=== PATIENT | male | born 1970 | race Caucasian/White ===

== ENCOUNTER 2018-06-25 11:32 | Observation (INO) ==
[2018-06-25] MEDS ORDERED: ASPIRIN 81 MG TAB.CHEW PO ONE (11:39)
[2018-06-25] MEDS ORDERED: ONDANSETRON HCL/PF 2 MG/ML VIAL IV ONE (11:52)
[2018-06-25] MEDS ORDERED: ONDANSETRON HCL/PF 2 MG/ML VIAL ONE (11:53)
[2018-06-25] MEDS: NITROGLYCERIN 0.4 MG/TAB BTL SL PRN ×2 (11:56→18:52)
[2018-06-25 12:00] LABS: Hematocrit 44.2 % (42.0-52.0); Hemoglobin 15.1 gm/dL (13.5-18.0); Mean Cell Volume 86.8 fl (78-100); Mean Corpuscular Hemoglobin 29.7 pg (27-31); Mean Corpuscular Hgb Conc 34.2 g/dl (32-36); Mean Platelet Volume 10.2 fl (8-11.3); Neutrophil # 2.8 K/mm3 (1.3-6.0); Neutrophil % 56.5 % (42-75.0); Platelet Count 213 K/mm3 (150-450); Red Blood Count 5.09 M/mm3 (4.7-6.0); Red Cell Distribution Width 11.9 % (11.5-14.0)
[2018-06-25] MEDS ORDERED: NITROGLYCERIN 1 INCH PACKET TD ONE (12:07)
[2018-06-25 12:14] LABS: ALT 26 U/L (19-67); AST 21 U/L (0-48); Albumin * 3.9 gm/dl (3.4-5.0); Alkaline Phosphatase * 94 U/L (50-170); BUN/Creatinine Ratio 16.7 (9.0-21.6); Bilirubin, Total 0.6 mg/dL (0.0-1.1); Blood Urea Nitrogen 17 mg/dL (6-23); Calcium * 9.2 mg/dL (7.9-10.9); Carbon Dioxide 25.6 mmol/L (24-32.6); Chloride 104 mmol/L (97-106); Glucose * 112 mg/dL (70-110); Potassium 3.6 mmol/L (3.4-4.6); Sodium 141 mmol/L (132-142); Total Protein 7.3 gm/dL (6.2-8.2)
[2018-06-25 12:16] LABS: Troponin I Less than 0.017 ng/mL (0.00-0.10)
--- NOTE | 2018-06-25 13:31 | ERNOTE ---
Chest Pain/Cardiac HPI Date of Service: 06/25/18 Chief Complaint: Chest Pain Time Seen by Provider: 06/25/18 11:44 Source: patient Exam Limitations: no limitations Allergies/Adverse Reactions: Allergies Penicillins Allergy (Verified 06/25/18 11:39) Home Medications: HOME MEDICATIONS Aspirin [Adult Aspirin] 81 mg PO DAILY 06/25/18 [Last Taken Unknown] Narrative: Patient presents to the ED for chest pain. He relates that he has had 2 episodes of exertional CP today. He was shoveling snow this am at work and developed chest pain that lasted approx 10 minutes then went away. This castro recurred around 9 again when he was walking up the stairs. Minimal residual pain in the chest here resolved with ASA and NTG. Pain left chest to center of chest with some SOB. He actually has been having some off and on pains for over a month but nothing exertional like this. Was set up to see PCP for possible stress test but that appt isnt for 2 more days. Paternal family Hx of early CAD. Timing: gone now Severity/Quality: moderate Location: central Activities at Onset: other - exertion Modifying Factors - Improves: Present: nitroglycerin Modifying Factors - Worsens: Present: exercise Nitro Today/Relief: 0.4 mg x 1 Aspirin Treatment Today: 325 mg x 1 Associated Symptoms: Present: shortness of breath. Absent: syncope, cough, weak ness Prior Chest Pain/Cardiac Workup: Reports: no prior cardiac workup Prior Treatment: Denies: recently seen Review of Systems - Review of Systems Constitutional: Absent: fever Respiratory: Present: See HPI Cardiology: Present: See HPI Gastrointestinal/Abdominal: Absent: abdominal pain Neurological: Absent: weakness All Other Systems: All systems neg except as marked Medical History (Last Reviewed 06/25/18 @ 13:26 by Terrell Alvarado MD) No pertinent past medical history Surgical History: Surgical History (Last Reviewed 06/25/18 @ 13:26 by Terrell Alvarado MD) Hx of appendectomy Hx of knee surgery Hx of shoulder surgery Social History: Preferred Language Bulgarian Do you have any jew or No cultural preference? Smoking Status Never smoker Alcohol Use sober Drug Use none No Social History Section defined Physical Exam - Physical Exam General Appearance: Present: alert, no apparent distress Head Exam: Present: normal inspection, no evidence of injury Eye Exam: Normal inspection: bilateral, PERRL: bilateral Ears, Nose, Throat: Present: normal ENT inspection Neck: Present: normal inspection Respiratory: Present: no respiratory distress, normal breath sounds, no accessory muscle use, lungs clear Cardiovascular/Chest: Present: regular rate, rhythm, normal peripheral pulses Gastrointestinal/Abdominal: Present: normal bowel sounds, nontender, nondistended, soft Back Exam: Present: normal range of motion Extremity Exam: Present: normal inspection, non-tender, no edema Neurological Exam: Present: alert, no motor/sensory deficits Skin Exam: Present: normal color, warm/dry Progress - Results and Orders Patient's Lab Results:: I have reviewed the patient's lab results. - Vital Signs Patient's Vital Signs:: I have reviewed the patient's vital signs. Vital Signs: Vital Signs 06/25/18 11:33 Temperature 36.5 C Pulse Rate 92 Respiratory Rate 14 Blood Pressure 156/89 H O2 Sat by Pulse Oximetry 100 - EKG EKG #1 EKG read: Interp. by me EKG Comments: NSR rate 83. Non-specific, no STEMI - X-Ray X-Ray #1 X-Ray: chest Interpretation: Interp. by me X-ray Comments: I reviewed official radiology report - Progress/Reassessment Chief Complaint: Chest Pain Progress Note-Subjective: 06/25/18 13:29 Patient pain free after NTG. There is no suggestion of PE or aortic dissection, with d-dimer in normal range, no indication for CT. Given the exertional pain X 2 today and releif with NTG I feel he needs rule out before stress test. Patient and fam prefer hospital rule out. D/W Dr Fox who will admit obs. Departure Clinical Impression: Chest pain - Departure Disposition: Still a patient Condition: Stable
[2018-06-25] MEDS ORDERED: ACETAMINOPHEN 325 MG TABLET PO PRN ×2 (19:38→20:18)
[2018-06-25] MEDS ORDERED: ACETAMINOPHEN 325 MG TABLET ONE (19:47)
--- NOTE | 2018-06-25 23:02 | HP ---
Chief Complaint - Chief Complaint Date of Service: 06/25/18 Time of Service: 18:00 Chief Complaint: Chest Pain History of Present Illness: James is a 48 yo male that has been having reoccurring chest pain off and on for the last few months. Today he was out shoveling when he began having left anterior chest wall pain with radiation to his back. He was short of breath and had increased sweating. He denies cough and no association with food to his pain. He presented to the ER for evaluation and was given nitro. He reports the nitro helped his chest pain. Initial work up in the ER was negative for acute IL with negative troponins, no EKG change, and no acute findings on imaging. 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 Smoking Status Never smoker Have you smoked in the past 12 No months Alcohol Use sober Drug Use none No Social History Section defined Review Of Systems (GEN) - Review of Systems Generalized/Overall Review: Absent: Weakness, Chills, Fever EENTM: Present: No Symptoms Reported Respiratory: Present: Shortness of Breath. Absent: Cough, Wheezing Cardiac: Present: Chest Pain. Absent: Edema, Palpitations, Syncope Abdominal: Absent: Nausea, Vomiting, Abdominal Pain, Constipation, Diarrhea Genitourinary: Present: No Symptoms Reported Musculoskeletal: Present: No Symptoms Reported Neurological: Present: No Symptoms Reported Skin: Present: No Symptoms Reported Allergies/Adverse Reactions: Allergies Allergy/AdvReac Type Severity Reaction Status Date / Time Penicillins Allergy Verified 06/27/18 14:23 Home Medications: HOME MEDICATIONS Aspirin [Adult Aspirin] 81 mg PO DAILY 06/25/18 [Last Taken 06/25/18] metoprolol tartrate 25 mg tablet 25 mg PO BID #60 tab 06/27/18 [Last Taken Unknown] nitroglycerin 0.4 mg sublingual tablet 0.4 mg SL Q5-15M PRN #25 tab 06/27/18 [Last Taken Unknown] Exam - Exam Vital Signs: Vital Signs - Last Taken Temp 37.0 C 06/25/18 22:05 Pulse 64 06/25/18 22:05 Resp 16 06/25/18 22:05 BP 113/56 06/25/18 22:05 Pulse Ox 97 06/25/18 22:05 Constitutional: Present: Alert, Oriented x3, Cooperative ENT Exam: Present: hearing grossly normal Eye Exam: bilateral eye: normal inspection Respiratory: Present: lungs clear, normal breath sounds Cardiovascular/Chest: Present: regular rate, rhythm, no murmur Peripheral Pulses: radial (R): 2+, radial (L): 2+ Abdomen: Present: Normal bowel sounds, soft, nontender, nondistended Extremity: Present: normal inspection, normal capillary refill Skin Exam: Present: normal color, warm/dry, no cyanosis Lymphatic: Present: no adenopathy Neurologic: Present: no motor/sensory deficits, alert, normal mood/affect, oriented x 3 Appearance: Present: appropriate appearance, appropriate insight Eye contact: Present: cooperative, good eye contact, normal speech Thoughts: Present: normal thought pattern, no apparent hallucination Diagnostic Studies: Abnormal Lab Results 06/25/18 Range/Units 11:50 Anion Gap 15.0 H (6.8-13.8) mmol/L Random Glucose 112 H (70-110) mg/dL Laboratory Results WBC 5.0 K/mm3 (4.0-10.5) 06/25/18 11:50 RBC 5.09 M/mm3 (4.7-6.0) 06/25/18 11:50 Hgb 15.1 gm/dL (13.5-18.0) 06/25/18 11:50 Hct 44.2 % (42.0-52.0) 06/25/18 11:50 MCV 86.8 fl (78-100) 06/25/18 11:50 MCH 29.7 pg (27-31) 06/25/18 11:50 MCHC 34.2 g/dl (32-36) 06/25/18 11:50 RDW 11.9 % (11.5-14.0) 06/25/18 11:50 Plt Count 213 K/mm3 (150-450) 06/25/18 11:50 MPV 10.2 fl (8-11.3) 06/25/18 11:50 Immature Gran % (Auto) 0.20 % (0.001-0.429) 06/25/18 11:50 Immature Gran # (Auto) 0.01 K/mm3 (0.000-0.0310) 06/25/18 11:50 Neutrophils % 56.5 % (42-75.0) 06/25/18 11:50 Lymphocytes % 33.5 % (20-51) 06/25/18 11:50 Monocytes % 7.6 % (0.0-9) 06/25/18 11:50 Eosinophils % 1.2 % (0.0-3.0) 06/25/18 11:50 Basophils % 1.0 % (0.0-1.0) 06/25/18 11:50 Nucleated RBC % 0.0 k/mm3 (0-1) 06/25/18 11:50 Neutrophils # 2.8 K/mm3 (1.3-6.0) 06/25/18 11:50 Lymphocytes # 1.67 k/mm3 (1.5-3.5) 06/25/18 11:50 Monocytes # 0.4 k/mm3 (0.0-1.0) 06/25/18 11:50 Eosinophils # 0.1 k/mm3 (0.0-0.7) 06/25/18 11:50 Absolute Basophils 0.1 k/mm3 (0.0-0.1) 06/25/18 11:50 D-Dimer 0.26 ug/mL (0.19-0.49) 06/25/18 11:50 Sodium 141 mmol/L (132-142) 06/25/18 11:50 Plasma Sodium 141 mmol/L (130-142) 06/25/18 11:50 Potassium 3.6 mmol/L (3.4-4.6) 06/25/18 11:50 Chloride 104 mmol/L (97-106) 06/25/18 11:50 Carbon Dioxide 25.6 mmol/L (24-32.6) 06/25/18 11:50 Anion Gap 15.0 mmol/L (6.8-13.8) H 06/25/18 11:50 BUN 17 mg/dL (6-23) 06/25/18 11:50 Creatinine 1.02 mg/dL (0.4-1.4) 06/25/18 11:50 Est GFR (Non-Af Amer) 83 mL/min (60-130) 06/25/18 11:50 BUN/Creatinine Ratio 16.7 (9.0-21.6) 06/25/18 11:50 Random Glucose 112 mg/dL (70-110) H 06/25/18 11:50 Calcium 9.2 mg/dL (7.9-10.9) 06/25/18 11:50 Calcium Adj for Albumin 9.0 mg/dL (8.4-10.2) 06/25/18 11:50 Total Bilirubin 0.6 mg/dL (0.0-1.1) 06/25/18 11:50 AST 21 U/L (0-48) 06/25/18 11:50 ALT 26 U/L (19-67) 06/25/18 11:50 Alkaline Phosphatase 94 U/L (50-170) 06/25/18 11:50 Troponin I Less than 0.017 ng/mL (0.00-0.10) 06/25/18 18:10 Total Protein 7.3 gm/dL (6.2-8.2) 06/25/18 11:50 Albumin 3.9 gm/dl (3.4-5.0) 06/25/18 11:50 Assessment/Plan - Narrative Narrative: James is a 48 yo male with chest pain. Initial work up in the ER is negative for acute IL. His pain has been off and on for the last few month but he does report responsiveness to nitro in the ER. He will be admitted to observation with serial troponins, monitoring on telemetry. Will consider outpatient stress testing. Expect 1 midnight hospitalization. - Assessment/Plan (1) Chest pain Problem: Acute Qualifiers: Chest pain type: unspecified Qualified Code(s): R07.9 - Chest pain, unspecified
--- NOTE | 2018-06-26 10:48 | DS ---
(1) Chest pain Problem: Acute Qualifiers: Chest pain type: unspecified Qualified Code(s): R07.9 - Chest pain, unspecified Description of Stay: James is a 48 yo male that was admitted for chest pain that occurred while shoveling snow. His initial work up was negative for acute IA. He was admitted to observation with telemetry and repeat troponin. There were no acute change on telemetry and troponin was negative x 3. He continues to report left anterior chest wall pain that comes and goes and I suspect it is musculoskeletal but will evaluate this further with a stress test as an outpatient. Procedures Performed: none Results and Findings: Lab Pending Results 06/25/18 11:50: WBC 5.0, RBC 5.09, Hgb 15.1, Hct 44.2, MCV 86.8, MCH 29.7, MCHC 34.2, RDW 11.9, Plt Count 213, MPV 10.2, Immature Gran % (Auto) 0.20, Immature Gran # (Auto) 0.01, Neutrophils % 56.5, Lymphocytes % 33.5, Monocytes % 7.6, Eosinophils % 1.2, Basophils % 1.0, Nucleated RBC % 0.0, Neutrophils # 2.8, Lymphocytes # 1.67, Monocytes # 0.4, Eosinophils # 0.1, Absolute Basophils 0.1 06/25/18 11:50: Sodium 141, Plasma Sodium 141, Potassium 3.6, Chloride 104, Carbon Dioxide 25.6, Anion Gap 15.0 H, BUN 17, Creatinine 1.02, Est GFR (Non-Af Amer) 83, BUN/Creatinine Ratio 16.7, Random Glucose 112 H, Calcium 9.2, Calcium Adj for Albumin 9.0, Total Bilirubin 0.6, AST 21, ALT 26, Alkaline Phosphatase 94, Troponin I Less than 0.017, Total Protein 7.3, Albumin 3.9 06/25/18 11:50: D-Dimer 0.26 06/25/18 18:10: Troponin I Less than 0.017 06/26/18 03:28: Troponin I Less than 0.017 Discharge Location: Home Disposition: Home self-care Condition: Good Discharge Activity: Activity as tolerated Discharge Diet: General/regular food Referrals: Zurdo Blanco DO [Staff Physician] - One Week (Patient has appointment scheduled for tomorrow, reschedule this follow after the stress test) Problem Oriented Discharge Instructions to Patient/Family: Chest Pain Observation Complete Home Medications List: Complete Home Medication List: Aspirin [Adult Aspirin] 81 mg PO DAILY 06/25/18 Amb Orders for Discharge: NUC Treadmill Stress Test Time Frame: 1 Week, Location: Radiology
[2018-06-26 11:41] VITALS: BP 140/84
== END 2018-06-26 11:55 | disposition home or self-care (01) ==
LOC: ER 11:32 → MS 11:32
PROVIDERS: ADMIT Family Medicine; ATTEND Family Medicine
DX: R07.9 Chest pain, unspecified
CPT/HCPCS: 36415; 71020; 71046; 80053; 84484; 85025; 85379; 93005; 96374; 99285; G0378; J2405

== ENCOUNTER 2019-11-09 03:51 | Inpatient (IN) ==
[2019-11-09 04:26] LABS: Hematocrit 42.6 % (42.0-52.0); Hemoglobin 13.7 gm/dL (13.5-18.0); Mean Cell Volume 89.5 fl (78-100); Mean Corpuscular Hemoglobin 28.8 pg (27-31); Mean Corpuscular Hgb Conc 32.2 g/dl (32-36); Mean Platelet Volume 9.4 fl (8-11.3); Neutrophil # 9.6 K/mm3 (1.3-6.0); Neutrophil % 77.1 % (42-75.0); Platelet Count 329 K/mm3 (150-450); Red Blood Count 4.76 M/mm3 (4.7-6.0); Red Cell Distribution Width 12.7 % (11.5-14.0); White Blood Count 12.4 K/mm3 (4.0-10.5)
[2019-11-09 04:38] LABS: Anion Gap 13.6 mmol/L (6.8-13.8); BUN/Creatinine Ratio 12.8 (9.0-21.6); Bilirubin, Total 0.7 mg/dL (0.0-1.1); Calcium * 9.5 mg/dL (7.9-10.9); Carbon Dioxide 26.1 mmol/L (24-32.6); Potassium 3.7 mmol/L (3.4-4.6); Total Protein 7.8 gm/dL (6.2-8.2)
[2019-11-09] MEDS ORDERED: MORPHINE SULFATE 2 MG/ML DISP.SYRIN IV ONE ×3 (04:45→08:06)
--- NOTE | 2019-11-09 04:52 | ERNOTE ---
Abdominal HPI - Narrative Date of Service: 11/09/19 - General Chief Complaint: Abdominal Pain Time Seen by Provider: 11/09/19 04:10 Source: patient, family Exam Limitations: no limitations - Immun/Allergies/Home Medications Immunizatons: IMMUNIZATION HX Immunizations Up to Date Yes History of Influenza Vaccine No Hx Pneumococcal Vaccination No Allergies/Adverse Reactions: Allergies Penicillins Allergy (Verified 11/09/19 04:08) Home Medications: HOME MEDICATIONS nitroglycerin 0.4 mg sublingual tablet 0.4 mg SL Q5-15M PRN #25 tab 06/27/18 [Last Taken Unknown] metoprolol tartrate 50 mg tablet 50 mg PO DAILY #180 tab 06/16/19 [Last Taken Unknown] Albuterol Sulfate [Proair HFA] 2 puff INHALATION Q6H #1 inhaler 11/03/19 [Last Taken Unknown] Levofloxacin [Levaquin] 500 mg PO DAILY #7 tab 11/03/19 [Last Taken Unknown] Famotidine [Pepcid] 20 mg PO DAILY 11/09/19 [Last Taken Unknown] - History of Present Illness Narrative: Patient was seen in the ER about a week ago and diagnosed with community- acquired pneumonia, just finishing a course of Levaquin. Over the past couple of days, he has developed pain in the epigastric region. This radiates through to his back. He is not aware of a fever, but he has had some diaphoresis. He has also had some constipation. No nausea or vomiting. Review of Systems - Review of Systems Constitutional: Present: recent illness, diaphoresis, malaise EYE: Present: no symptoms reported ENT: Present: no symptoms reported Respiratory: Present: no symptoms reported Cardiology: Present: no symptoms reported Gastrointestinal/Abdominal: Present: abdominal pain Genitourinary: Present: no symptoms reported Musculoskeletal: Present: no symptoms reported Skin: Present: no symptoms reported Neurological: Present: no symptoms reported Endocrine: Present: no symptoms reported Hematologic/Lymphatic: Present: no symptoms reported Psych: Present: no symptoms reported All Other Systems: All systems neg except as marked Medical History (Last Reviewed 11/09/19 @ 04:51 by Carolyn Ribera MD) Chest pain (Resolved) Coronary artery spasm (Suspected) No problems with chest pain from the suspected issue since starting metoprolol. He has some mild fatigue but is adapted to it. 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 No pertinent past medical history History of left heart catheterization dr royal at [facility], was clean test with no cad/blockage, no stents Surgical History: Surgical History (Last Reviewed 11/09/19 @ 04:51 by Carolyn Ribera MD) Hx of appendectomy Hx of knee surgery Hx of shoulder surgery Family History: Family History (Last Reviewed 11/09/19 @ 04:51 by Carolyn Ribera MD) Mother Hypertension Father CHF (congestive heart failure) Myocardial infarction Brother Hypertension Social History: (Last Reviewed 11/09/19 @ 04:51 by Carolyn Ribera MD) Social History: Marital status: number of children: 2 current occupational status: employed current occupation: [employer] Highest education level completed: Bachelor's degree Service: No Tobacco: Smoking Status: Never smoker Alcohol: alcohol intake: never Substance Use: substance use type: does not use Dietary Habits: caffeine: Yes Physical Exam - Physical Exam General Appearance: Present: wd/wn, mild distress Head Exam: Present: normal inspection, no evidence of injury Eye Exam: Normal inspection: bilateral, PERRL: bilateral Ears, Nose, Throat: Present: normal ENT inspection Neck: Present: normal inspection, nontender, supple, full range of motion Respiratory: Present: no respiratory distress, normal breath sounds, no accessory muscle use, chest nontender, lungs clear Cardiovascular/Chest: Present: regular rate, rhythm, no murmur, normal peripher al pulses Gastrointestinal/Abdominal: Present: tenderness - epigastric Back Exam: Present: normal inspection, normal range of motion, no CVA tendernes s, no vertebral tenderness Extremity Exam: Present: normal inspection, normal range of motion, no edema Neurological Exam: Present: alert, normal mood/affect, no motor/sensory deficits Skin Exam: Present: normal color, warm/dry Lymphatic Exam: Present: no adenopathy Progress - Results and Orders Patient's Lab Results:: I have reviewed the patient's lab results. - Vital Signs Patient's Vital Signs:: I have reviewed the patient's vital signs. Vital Signs: Vital Signs 11/09/19 04:03 11/09/19 04:40 Temperature 36.5 C Pulse Rate 94 88 Respiratory Rate 16 18 Blood Pressure 130/88 132/84 O2 Sat by Pulse Oximetry 96 96 - EKG EKG #1 EKG: nonspecific ST T wave changes EKG read: Reviewed by me EKG Comments: No significant change from prior EKG 11/03/19. - CT/Ultrasound CT/Ultrasound Narrative: CT angiogram of the chest shows no evidence of pulmonary embolus. There is an abnormal appearance of the esophagus, highly worrisome for esophageal malignancy with pathologic mediastinal lymphadenopathy. Recommend correlation with endoscopy. No evidence of perforation. Small bilateral pleural effusions with bibasilar groundglass and linear opacities, which may represent atelectasis and/or pneumonia to include atypical viral pneumonia. CT of the abdomen and pelvis without acute abnormality. There is a small fat-containing umbilical hernia. Esophageal findings as above. - Progress/Reassessment Chief Complaint: Abdominal Pain Plan - Plan Plan: He is having pain with any attempt to eat or drink. Will request admission for IV fluids, pain control, further evaluation of esophagus. I have a call in to his PCP, Dr. Blanco. Departure Clinical Impression: Abnormal CT scan, esophagus, Epigastric pain - Departure Disposition: Short Term Hospital Inpatient Condition: Stable Referrals: Zurdo Blanco DO [Primary Care Provider] -
[2019-11-09] MEDS ORDERED: DIATRIZOATE MEGLUMINE, SODIUM 30 ML BTL PO ONE (04:56)
[2019-11-09] MEDS ORDERED: ONDANSETRON HCL/PF 2 MG/ML VIAL IV ONE (04:59)
[2019-11-09] MEDS ORDERED: MORPHINE SULFATE 4 MG/ML SYRG IV ONE (08:30)
[2019-11-09] MEDS ORDERED: ONDANSETRON HCL/PF 2 MG/ML VIAL IV PRN (08:37)
[2019-11-09] MEDS ORDERED: MORPHINE SULFATE 4 MG/ML SYRG IV PRN (08:37)
[2019-11-09] MEDS ORDERED: METOPROLOL TARTRATE 1 MG/ML AMPUL IV PRN (08:54)
--- NOTE | 2019-11-09 09:19 | CONS ---
[facility] - General Date of Service: 11/09/19 Source: patient, family, RN/MD, RN notes reviewed, old records Exam Limitations: no limitations - History of Present Illness Timing/Duration: getting worse Modifying Factors - (Worsens): Reports: eating Modifying Factors - (Improves): Reports: rest Associated Symptoms: chest pain, loss of appetite Allergies/Adverse Reactions: Allergies Penicillins Allergy (Verified 11/09/19 04:08) Home Medications: Home Medications Medication Instructions Recorded Last Taken nitroglycerin 0.4 mg sublingual 0.4 mg SL Q5-15M PRN #25 tab 06/27/18 Unknown tablet metoprolol tartrate 50 mg tablet 50 mg PO DAILY #180 tab 06/16/19 Unknown Albuterol Sulfate [Proair HFA] 2 puff INHALATION Q6H #1 inhaler 11/03/19 Unknown Levofloxacin [Levaquin] 500 mg PO DAILY #7 tab 11/03/19 Unknown Famotidine [Pepcid] 20 mg PO DAILY 11/09/19 Unknown Procedures Application of splint (05/23/99) Medications - Medications Current Medications: He just finished a course of Levaquin for community-acquired pneumonia. He had COVID testing on 11/03/2019 that was negative Review of Systems - Review of Systems Narrative: He was in the ER on 11/03/2019 and found to have community-acquired pneumonia which was treated with an outpatient course of Levaquin. COVID-19 testing on 11/03/2019 was negative. He states he has a constant discomfort in the epigastrium (2/3). This gets worse if he eats. He has some bloating. The pain occasionally radiates up into the left chest and into his back. He denies dysphagia or odynophagia but is not eating much because of the discomfort. He does not get heartburn often. He does not report reflux. He has some bloating. He states he is somewhat constipated his stools are harder and he has to push to go. He had his appendix out in [place] in [address]. [address] scan of the chest was done for possible pulmonary embolism due to an elevated d-dimer. It showed some thickening of the distal esophagus and endoscopy was recommended. He has also had chest pain before but this is different. The pain he had before prompting an ER visit and an observation stay. He subsequently saw insurance checker and had coronary angiography in [place] that was negative. He was placed on metoprolol and apparently that pain is somewhat better. Generalized/Overall Review: Present: Weakness, Diaphoresis. Absent: Chills, Fever EENTM: Present: No Symptoms Reported, Other - His states he snores. Absent: Throat Pain Respiratory: Present: Other - He really denies much in the way of a cough or sputum production. No dyspnea on exertion Genitourinary: Present: No Symptoms Reported. Absent: Nocturia, Dysuria Musculoskeletal: Present: No Symptoms Reported Neurological: Present: No Symptoms Reported Skin: Present: No Symptoms Reported Endocrine: Present: No Symptoms Reported Physical Examination - Exam Vital Signs: Vital Signs - Last Taken Temp 36.5 C 11/09/19 04:03 Pulse 82 11/09/19 08:11 Resp 19 11/09/19 08:11 BP 150/85 H 11/09/19 08:11 Pulse Ox 94 11/09/19 08:11 O2 Oxygen Delivery Method Room Air Constitutional: Present: Alert, Oriented x3, Cooperative, Well developed, Well n ourished, Mild distress ENT Exam: Present: normal ENT inspection, other - Mallampati 4 airway Eye Exam: bilateral eye: normal inspection, other - Conjunctival injection Neck: Present: full range of motion, normal inspection Breasts: Present: Exam deferred Respiratory: Present: normal breath sounds, no respiratory distress Cardiovascular/Chest: Present: regular rate, rhythm, no murmur Abdomen: Present: other - Very tympanitic. No percussion tenderness or direct tenderness. No bowel sounds over 1 minute /Rectal: Present: Exam deferred Extremity: Present: normal range of motion, normal inspection Skin Exam: Present: normal color, warm/dry Neurologic: Present: multiskill operator II-XII nml as tested, normal cerebellar test, no mot or/sensory deficits Appearance: Present: appropriate appearance, appropriate insight, neat, no memory impairment Eye contact: Present: cooperative, good eye contact, normal speech Thoughts: Present: normal thought pattern - Results and Findings: Lab/Microbiology results last 24 hrs: Abnormal/Pending Laboratory Last 24 HRS 11/09/19 11/09/19 11/09/19 04:20 04:20 04:20 WBC 12.4 H Immature Gran % (Auto) 0.80 H Immature Gran # (Auto) 0.10 H Neutrophils % 77.1 H Lymphocytes % 12.3 L Neutrophils # 9.6 H D-Dimer 2.24 H Random Glucose 119 H Albumin 3.[address] scan of the chest abdomen and pelvis is remarkable for distal esophageal thickening. Endoscopy was recommended to rule out malignancy - Assessments/Findings (1) Abnormal CT scan, esophagus Diagnosis(s): Pamphlets on EGD and GERD were reviewed with him and his and given to them for reference. Explained what was involved with EGD with biopsies. The risks and complications were explained. After an interactive discussion his questions were answered to his apparent satisfaction and he has given informed consent for EGD. Rapid COVID testing has just been performed. Endoscopy will be scheduled when that result is known. Problem: Acute
[2019-11-09] MEDS: PANTOPRAZOLE SODIUM 40 MG in NORMAL SALINE 100 ML IV SCH ×2 (09:31→20:52)
[2019-11-09] MEDS: MORPHINE SULFATE 10 MG/ML SYRG IV PRN ×3 (10:15→23:14)
--- NOTE | 2019-11-09 10:41 | ANES ---
Anesthesia Pre Procedure Eval Vitals/Labs: Last Vital Signs Temp 37.3 C 11/09/19 08:36 Pulse 83 11/09/19 09:18 Resp 13 11/09/19 09:18 BP 126/85 11/09/19 09:18 Pulse Ox 95 11/09/19 09:18 HOME MEDICATIONS nitroglycerin 0.4 mg sublingual tablet 0.4 mg SL Q5-15M PRN #25 tab 06/27/18 [Last Taken Unknown] metoprolol tartrate 50 mg tablet 50 mg PO DAILY #180 tab 06/16/19 [Last Taken Unknown] Albuterol Sulfate [Proair HFA] 2 puff INHALATION Q6H #1 inhaler 11/03/19 [Last Taken Unknown] Levofloxacin [Levaquin] 500 mg PO DAILY #7 tab 11/03/19 [Last Taken Unknown] Famotidine [Pepcid] 20 mg PO DAILY 11/09/19 [Last Taken Unknown] Allergies/Adverse Reactions: Allergies Allergy/AdvReac Type Severity Reaction Status Date / Time Penicillins Allergy Verified 11/09/19 04:08 - Planned Procedure Planned Procedure: Epigastric pain Medication List Reviewed:: Yes Allergies Verified: Yes Medical History (Last Reviewed 11/09/19 @ 10:40 by Roland Milner CRNA) Chest pain (Resolved) Coronary artery spasm (Suspected) No problems with chest pain from the suspected issue since starting metoprolol. He has some mild fatigue but is adapted to it. 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 No pertinent past medical history History of left heart catheterization dr royal at [facility], was clean test with no cad/blockage, no stents Surgical History (Last Reviewed 11/09/19 @ 10:40 by Roland Milner CRNA) Hx of appendectomy Hx of knee surgery Hx of shoulder surgery Family History (Last Reviewed 11/09/19 @ 10:40 by Roland Milner CRNA) Mother Hypertension Father CHF (congestive heart failure) Myocardial infarction Brother Hypertension - Family Anesthesia History Family History:: no untoward family reactions to anesthesia, no familial bleeding tendencies, no family history of clotting disorders, no family history of premature - Airway/Neck/Teeth Within Normal Limits:: Yes Teeth Condition: intact Denture Type: Perm crown/bridge Mallampatti Score: 3 Thyromental (T-M) distance: > 6 cm Mandibulo Hyoid distance: > 3 cm - Respiratory Respiratory Physical: lungs clear Smoking Status: Never smoker Discussed smoking cessation including day of surgery: No Sleep Apnea currently treated: No Sleep Apnea by current assessment: No Discussed Risks/Treatment of SANNA: No - Cardiovascular Cardiac History: other - angina Tolerate Activity: Good Heart Sounds: S1 & S2, Regular - Gastrointestinal NPO since: mn - Anesthesia Assessment and Plan ASA Class: PS, II Anesthesia Type Plan: MAC
[2019-11-09] MEDS: KETOROLAC TROMETHAMINE 30 MG/ML VIAL IV PRN ×2 (11:17→17:41)
--- NOTE | 2019-11-09 11:38 | HP ---
Chief Complaint - Chief Complaint Date of Service: 11/09/19 Time of Service: 09:00 Chief Complaint: Epigastric pain, abnormal CT of the esophagus History of Present Illness: He was in the ER on 11/03/2019 and found to have community-acquired pneumonia which was treated with an outpatient course of Levaquin. COVID-19 testing on 11/03/2019 was negative. He states that he has a constant discomfort in the epigastrium (2/3). This gets worse if he eats. He has had some bloating. The pain occasionally radiates up into the left chest and into his back. He denies dysphagia or odynophagia but is not eating much because of the discomfort. He does not get heartburn often. He does not report reflux. He has some bloating. He states he is somewhat constipated his stools are harder and he has to push to go. He had his appendix out in [place] in [address]. CT scan of the chest was done for possible pulmonary embolism due to an elevated d-dimer. It showed some thickening of the distal esophagus and endoscopy was recommended. He has also had chest pain before, but this pain is different. The pain he had before prompted an ER visit and an observation stay. He subsequently saw cardiology and had coronary angiography in [place] that was negative. He was placed on metoprolol and apparently that pain is somewhat better. Medical History (Last Reviewed 11/09/19 @ 11:34 by Virgen Mcintosh MD) Chest pain (Resolved) Coronary artery spasm (Suspected) No problems with chest pain from the suspected issue since starting metoprolol. He has some mild fatigue but is adapted to it. 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 No pertinent past medical history History of left heart catheterization dr royal at [facility], was clean test with no cad/blockage, no stents Surgical History: Surgical History (Last Reviewed 11/09/19 @ 11:34 by Virgen Mcintosh MD) Hx of appendectomy Hx of knee surgery Hx of shoulder surgery Family History: Family History (Last Reviewed 11/09/19 @ 11:34 by Virgen Mcintosh MD) Mother Hypertension Father CHF (congestive heart failure) Myocardial infarction Brother Hypertension Social History: (Last Reviewed 11/09/19 @ 11:34 by Virgen Mcintosh MD) Social History: Marital status: number of children: 2 current occupational status: employed current occupation: [employer] Highest education level completed: Bachelor's degree Service: No Tobacco: Smoking Status: Never smoker Alcohol: alcohol intake: never Substance Use: substance use type: does not use Dietary Habits: caffeine: Yes Review Of Systems (GEN) - Review of Systems Generalized/Overall Review: Present: Weakness, Diaphoresis. Absent: Chills, Fever EENTM: Absent: Throat Pain Respiratory: Present: Other - He really denies much in the way of a cough or sputum production. No dyspnea on exertion Cardiac: Present: Other - See HPI Abdominal: Present: Other - See HPI Genitourinary: Present: No Symptoms Reported. Absent: Nocturia, Dysuria Musculoskeletal: Present: No Symptoms Reported Neurological: Present: No Symptoms Reported Skin: Present: No Symptoms Reported Endocrine: Present: No Symptoms Reported Immunizations: IMMUNIZATION HX Immunizations Up to Date Yes History of Influenza Vaccine No Hx Pneumococcal Vaccination No Allergies/Adverse Reactions: Allergies Allergy/AdvReac Type Severity Reaction Status Date / Time Penicillins Allergy Verified 11/09/19 04:08 Home Medications: HOME MEDICATIONS nitroglycerin 0.4 mg sublingual tablet 0.4 mg SL Q5-15M PRN #25 tab 06/27/18 [Last Taken Unknown] metoprolol tartrate 50 mg tablet 50 mg PO DAILY #180 tab 06/16/19 [Last Taken Unknown] Albuterol Sulfate [Proair HFA] 2 puff INHALATION Q6H #1 inhaler 11/03/19 [Last Taken Unknown] Levofloxacin [Levaquin] 500 mg PO DAILY #7 tab 11/03/19 [Last Taken Unknown] Famotidine [Pepcid] 20 mg PO DAILY 11/09/19 [Last Taken Unknown] Exam - Exam Vital Signs: Vital Signs - Last Taken Temp 37.3 C 11/09/19 08:36 Pulse 83 11/09/19 09:18 Resp 13 11/09/19 09:18 BP 126/85 11/09/19 09:18 Pulse Ox 95 11/09/19 09:18 Constitutional: Present: Alert, Oriented x3, Cooperative, Well developed, Well nourished, Mild distress ENT Exam: Present: normal ENT inspection, other - Mallampati 4 airway Eye Exam: bilateral eye: normal inspection, other - Conjunctival erythema Neck: Present: full range of motion, normal inspection Respiratory: Present: normal breath sounds, no respiratory distress Cardiovascular/Chest: Present: regular rate, rhythm, no murmur Abdomen: Present: other - Very tympanitic. No percussion tenderness or direct tenderness. Bowel sounds absent over 1 minute /Rectal: Present: Exam deferred Extremity: Present: normal range of motion, normal inspection Skin Exam: Present: normal color, warm/dry Neurologic: Present: time study observer II-XII nml as tested, normal cerebellar test, no motor/sensory deficits Appearance: Present: appropriate appearance, appropriate insight, neat, no memory impairment Eye contact: Present: cooperative, good eye contact, normal speech Thoughts: Present: normal thought pattern Diagnostic Studies: Abnormal Lab Results 11/09/19 11/09/19 11/09/19 Range/Units 04: 04:20 04:20 WBC 12.4 H (4.0-10.5) K/mm3 Immature Gran % (Auto) 0.80 H (0.001-0.429) % Immature Gran # (Auto) 0.10 H (0.000-0.0310) K/mm3 Neutrophils % 77.1 H (42-75.0) % Lymphocytes % 12.3 L (20-51) % Neutrophils # 9.6 H (1.3-6.0) K/mm3 D-Dimer 2.24 H (0.19-0.49) ug/mL Random Glucose 119 H (70-110) mg/dL Albumin 3.0 L (3.4-5.0) gm/dl Lipase 45 L (73-393) U/L Laboratory Results WBC 12.4 K/mm3 (4.0-10.5) H 11/09/19 04:20 RBC 4.76 M/mm3 (4.7-6.0) 11/09/19 04:20 Hgb 13.7 gm/dL (13.5-18.0) 11/09/19 04:20 Hct 42.6 % (42.0-52.0) 11/09/19 04:20 MCV 89.5 fl (78-100) 11/09/19 04:20 MCH 28.8 pg (27-31) 11/09/19 04:20 MCHC 32.2 g/dl (32-36) 11/09/19 04:20 RDW 12.7 % (11.5-14.0) 11/09/19 04:20 Plt Count 329 K/mm3 (150-450) 11/09/19 04:20 MPV 9.4 fl (8-11.3) 11/09/19 04:20 Immature Gran % (Auto) 0.80 % (0.001-0.429) H 11/09/19 04:20 Immature Gran # (Auto) 0.10 K/mm3 (0.000-0.0310) H 11/09/19 04:20 Neutrophils % 77.1 % (42-75.0) H 11/09/19 04:20 Lymphocytes % 12.3 % (20-51) L 11/09/19 04:20 Monocytes % 8.0 % (0.0-9) 11/09/19 04:20 Eosinophils % 1.6 % (0.0-3.0) 11/09/19 04:20 Basophils % 0.2 % (0.0-1.0) 11/09/19 04:20 Nucleated RBC % 0.0 k/mm3 (0-1) 11/09/19 04:20 Neutrophils # 9.6 K/mm3 (1.3-6.0) H 11/09/19 04:20 Lymphocytes # 1.52 k/mm3 (1.5-3.5) 11/09/19 04:20 Monocytes # 1.0 k/mm3 (0.0-1.0) 11/09/19 04:20 Eosinophils # 0.2 k/mm3 (0.0-0.7) 11/09/19 04:20 Absolute Basophils 0.0 k/mm3 (0.0-0.1) 11/09/19 04:20 D-Dimer 2.24 ug/mL (0.19-0.49) H 11/09/19 04:20 Sodium 139 mmol/L (132-142) 11/09/19 04:20 Plasma Sodium 139 mmol/L (130-142) 11/09/19 04:20 Potassium 3.7 mmol/L (3.4-4.6) 11/09/19 04:20 Chloride 103 mmol/L (97-106) 11/09/19 04:20 Carbon Dioxide 26.1 mmol/L (24-32.6) 11/09/19 04:20 Anion Gap 13.6 mmol/L (6.8-13.8) 11/09/19 04:20 BUN 12 mg/dL (6-23) 11/09/19 04:20 Creatinine 0.94 mg/dL (0.4-1.4) 11/09/19 04:20 Est GFR (Non-Af Amer) 91 mL/min (60-130) 11/09/19 04:20 BUN/Creatinine Ratio 12.8 (9.0-21.6) 11/09/19 04:20 Random Glucose 119 mg/dL (70-110) H 11/09/19 04:20 Lactic Acid, Venous 1.2 mmol/L (0.4-2.0) 11/09/19 04:20 Calcium 9.5 mg/dL (7.9-10.9) 11/09/19 04:20 Calcium Adj for Albumin 10.0 mg/dL (8.4-10.2) 11/09/19 04:20 Total Bilirubin 0.7 mg/dL (0.0-1.1) 11/09/19 04:20 AST 27 U/L (0-48) 11/09/19 04:20 ALT 47 U/L (19-67) 11/09/19 04:20 Alkaline Phosphatase 137 U/L (50-170) 11/09/19 04:20 Total Protein 7.8 gm/dL (6.2-8.2) 11/09/19 04:20 Albumin 3.0 gm/dl (3.4-5.0) L 11/09/19 04:20 Amylase 28 U/L (25-115) 11/09/19 04:20 Lipase 45 U/L (73-393) L 11/09/19 04:20 SARS-CoV-2 (PCR) Not detected (ND) 11/09/19 09:02 CT scan of the chest shows thickening of the distal esophagus and endoscopy was recommended Assessment/Plan - Assessment/Plan (1) Abnormal CT scan, esophagus Assessment: Pamphlets on EGD and GERD were reviewed with him and given to him and his further reference. Explained what was involved with EGD with biopsies. The risks and complications were explained. After interactive discussion his questions were answered to his apparent satisfaction and he has given informed consent for EGD. Rapid COVID testing has just been performed. Endoscopy will be scheduled when that result is known Problem: Acute
--- NOTE | 2019-11-09 12:00 | HP ---
Chief Complaint - Chief Complaint Date of Service: 11/09/19 Time of Service: 08:00 Chief Complaint: Severe pain in the midepigastrium radiating through to the back History of Present Illness: He was in the ER on 11/03/2019 and found to have community-acquired pneumonia which was treated with an outpatient course of Levaquin. COVID-19 testing on 11/03/2019 was negative. He states that he has a constant discomfort in the epigastrium (2/3). This gets worse if he eats. He has had some bloating. The pain occasionally radiates up into the left chest and into his back. He denies dysphagia or odynophagia but is not eating much because of the discomfort. He does not get heartburn often. He does not report reflux. He has some bloating. He states he is somewhat constipated his stools are harder and he has to push to go. He had his appendix out in [place] in [address]. CT scan of the chest was done for possible pulmonary embolism due to an elevated d-dimer. It showed some thickening of the distal esophagus and endoscopy was recommended. He has also had chest pain before, but this pain is different. The pain he had before prompted an ER visit and an observation stay. He subsequently saw cardiology and had coronary angiography in [place] that was negative. He was placed on metoprolol and apparently that pain is somewhat better. Medical History (Last Reviewed 11/09/19 @ 11:34 by Virgen Mcintosh MD) Chest pain (Resolved) Coronary artery spasm (Suspected) No problems with chest pain from the suspected issue since starting metoprolol. He has some mild fatigue but is adapted to it. 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 No pertinent past medical history History of left heart catheterization dr royal at [facility], was clean test with no cad/blockage, no stents Surgical History: Surgical History (Last Reviewed 11/09/19 @ 11:34 by Virgne Mcintosh MD) Hx of appendectomy Hx of knee surgery Hx of shoulder surgery Family History: Family History (Last Reviewed 11/09/19 @ 11:34 by Virgen Mcintosh MD) Mother Hypertension Father CHF (congestive heart failure) Myocardial infarction Brother Hypertension Social History: (Last Reviewed 11/09/19 @ 11:34 by Virgen Mcintosh MD) Social History: Marital status: number of children: 2 current occupational status: employed current occupation: [employer] Highest education level completed: Bachelor's degree Service: No Tobacco: Smoking Status: Never smoker Alcohol: alcohol intake: never Substance Use: substance use type: does not use Dietary Habits: caffeine: Yes Review Of Systems (GEN) - Review of Systems Generalized/Overall Review: Present: Malaise EENTM: Present: No Symptoms Reported Respiratory: Present: No Symptoms Reported Cardiac: Present: No Symptoms Reported Abdominal: Present: Abdominal Pain Genitourinary: Present: No Symptoms Reported Musculoskeletal: Present: Back Pain Neurological: Present: No Symptoms Reported Skin: Present: No Symptoms Reported Misc: All systems neg except as marked Immunizations: IMMUNIZATION HX Immunizations Up to Date Yes History of Influenza Vaccine No Hx Pneumococcal Vaccination No Allergies/Adverse Reactions: Allergies Allergy/AdvReac Type Severity Reaction Status Date / Time Penicillins Allergy Verified 11/09/19 04:08 Home Medications: HOME MEDICATIONS nitroglycerin 0.4 mg sublingual tablet 0.4 mg SL Q5-15M PRN #25 tab 06/27/18 [Last Taken Unknown] metoprolol tartrate 50 mg tablet 50 mg PO DAILY #180 tab 06/16/19 [Last Taken Unknown] Albuterol Sulfate [Proair HFA] 2 puff INHALATION Q6H #1 inhaler 11/03/19 [Last Taken Unknown] Levofloxacin [Levaquin] 500 mg PO DAILY #7 tab 11/03/19 [Last Taken Unknown] Famotidine [Pepcid] 20 mg PO DAILY 11/09/19 [Last Taken Unknown] Exam - Exam Vital Signs: Vital Signs - Last Taken Temp 37.3 C 11/09/19 08:36 Pulse 83 11/09/19 09:18 Resp 13 11/09/19 09:18 BP 126/85 11/09/19 09:18 Pulse Ox 95 11/09/19 09:18 Constitutional: Present: Alert, Oriented x3, Cooperative, Well developed, Well nourished, No distress ENT Exam: Present: normal ENT inspection, hearing grossly normal, pharynx normal, TMs normal Eye Exam: bilateral eye: normal inspection, PERRL, EOMI Neck: Present: non-tender, full range of motion, supple, normal inspection, trachea midline, limited range of motion, lymphadenopathy (R) Back Exam: Present: normal inspection Breasts: Present: Nontender Respiratory: Present: chest non-tender, lungs clear, normal breath sounds Cardiovascular/Chest: Present: normal peripheral pulses, regular rate, rhythm, no chest tenderness, no edema, no gallop, no JVD, no murmur, no rub Peripheral Pulses: carotid (R): 2+, carotid (L): 2+, radial (R): 2+, radial (L): 2+ Abdomen: Present: Normal bowel sounds, soft, nondistended, tender - midepigastric With guarding /Rectal: Present: Exam deferred Extremity: Present: normal range of motion, non-tender, normal inspection, no pedal edema, no calf tenderness, normal capillary refill Skin Exam: Present: warm/dry, pallor Lymphatic: Present: no adenopathy Neurologic: Present: airplane refueler II-XII nml as tested, normal cerebellar test Appearance: Present: appropriate appearance, appropriate insight, neat Eye contact: Present: cooperative, good eye contact, normal speech Thoughts: Present: normal thought pattern, no apparent hallucination Diagnostic Studies: Abnormal Lab Results 11/09/19 11/09/19 11/09/19 Range/Units 04:20 04:20 04:20 WBC 12.4 H (4.0-10.5) K/mm3 Immature Gran % (Auto) 0.80 H (0.001-0.429) % Immature Gran # (Auto) 0.10 H (0.000-0.0310) K/mm3 Neutrophils % 77.1 H (42-75.0) % Lymphocytes % 12.3 L (20-51) % Neutrophils # 9.6 H (1.3-6.0) K/mm3 D-Dimer 2.24 H (0.19-0.49) ug/mL Random Glucose 119 H (70-110) mg/dL Albumin 3.0 L (3.4-5.0) gm/dl Lipase 45 L (73-393) U/L Laboratory Results WBC 12.4 K/mm3 (4.0-10.5) H 11/09/19 04:20 RBC 4.76 M/mm3 (4.7-6.0) 11/09/19 04:20 Hgb 13.7 gm/dL (13.5-18.0) 11/09/19 04:20 Hct 42.6 % (42.0-52.0) 11/09/19 04:20 MCV 89.5 fl (78-100) 11/09/19 04:20 MCH 28.8 pg (27-31) 11/09/19 04:20 MCHC 32.2 g/dl (32-36) 11/09/19 04:20 RDW 12.7 % (11.5-14.0) 11/09/19 04:20 Plt Count 329 K/mm3 (150-450) 11/09/19 04:20 MPV 9.4 fl (8-11.3) 11/09/19 04:20 Immature Gran % (Auto) 0.80 % (0.001-0.429) H 11/09/19 04:20 Immature Gran # (Auto) 0.10 K/mm3 (0.000-0.0310) H 11/09/19 04:20 Neutrophils % 77.1 % (42-75.0) H 11/09/19 04:20 Lymphocytes % 12.3 % (20-51) L 11/09/19 04:20 Monocytes % 8.0 % (0.0-9) 11/09/19 04:20 Eosinophils % 1.6 % (0.0-3.0) 11/09/19 04:20 Basophils % 0.2 % (0.0-1.0) 11/09/19 04:20 Nucleated RBC % 0.0 k/mm3 (0-1) 11/09/19 04:20 Neutrophils # 9.6 K/mm3 (1.3-6.0) H 11/09/19 04:20 Lymphocytes # 1.52 k/mm3 (1.5-3.5) 11/09/19 04:20 Monocytes # 1.0 k/mm3 (0.0-1.0) 11/09/19 04:20 Eosinophils # 0.2 k/mm3 (0.0-0.7) 11/09/19 04:20 Absolute Basophils 0.0 k/mm3 (0.0-0.1) 11/09/19 04:20 D-Dimer 2.24 ug/mL (0.19-0.49) H 11/09/19 04:20 Sodium 139 mmol/L (132-142) 11/09/19 04:20 Plasma Sodium 139 mmol/L (130-142) 11/09/19 04:20 Potassium 3.7 mmol/L (3.4-4.6) 11/09/19 04:20 Chloride 103 mmol/L (97-106) 11/09/19 04:20 Carbon Dioxide 26.1 mmol/L (24-32.6) 11/09/19 04:20 Anion Gap 13.6 mmol/L (6.8-13.8) 11/09/19 04:20 BUN 12 mg/dL (6-23) 11/09/19 04:20 Creatinine 0.94 mg/dL (0.4-1.4) 11/09/19 04:20 Est GFR (Non-Af Amer) 91 mL/min (60-130) 11/09/19 04:20 BUN/Creatinine Ratio 12.8 (9.0-21.6) 11/09/19 04:20 Random Glucose 119 mg/dL (70-110) H 11/09/19 04:20 Lactic Acid, Venous 1.2 mmol/L (0.4-2.0) 11/09/19 04:20 Calcium 9.5 mg/dL (7.9-10.9) 11/09/19 04:20 Calcium Adj for Albumin 10.0 mg/dL (8.4-10.2) 11/09/19 04:20 Total Bilirubin 0.7 mg/dL (0.0-1.1) 11/09/19 04:20 AST 27 U/L (0-48) 11/09/19 04:20 ALT 47 U/L (19-67) 11/09/19 04:20 Alkaline Phosphatase 137 U/L (50-170) 11/09/19 04:20 Total Protein 7.8 gm/dL (6.2-8.2) 11/09/19 04:20 Albumin 3.0 gm/dl (3.4-5.0) L 11/09/19 04:20 Amylase 28 U/L (25-115) 11/09/19 04:20 Lipase 45 U/L (73-393) L 11/09/19 04:20 SARS-CoV-2 (PCR) Not detected (ND) 11/09/19 09:02 Assessment/Plan - Narrative Narrative: James is on IV dosing of morphine for pain control. He had a CT scan done that shows no abnormality of the distal esophagus with paraesophageal lymphadenopathy and per radiology is concerning for esophageal malignancy. Dr. Mcintosh has seen him in consultation and is agreed to take him to the OR to do an EGD with biopsy. Those findings will direct our care. I will also put him on IV Protonix 40 mg twice a day for now. I will have him use IV metoprolol for blood pressure elevation since he cannot take oral medicines right now. He will be admitted n.p.o. and kept that way until his procedures completed. - Assessment/Plan (1) Abnormal CT scan, esophagus Problem: Acute (2) Epigastric pain Problem: Acute
[2019-11-09] MEDS ORDERED: PROPOFOL VIAL IV ONE (12:33)
[2019-11-09] MEDS ORDERED: LIDOCAINE HCL 20 ML VIAL ONE (12:33)
[2019-11-09] MEDS: ALBUTEROL SULFATE 2.5 MG/0.5 ML VIAL.NEB IH SCH ×3 (13:42→18:18)
[2019-11-09] MEDS ORDERED: RINGER'S SOLUTION,LACTATED 1,000 ML IV ONE (13:57)
[2019-11-09 13:58] LABS: Urine Bilirubin Negative (NEGATIVE); Urine Blood Negative /ul (NEGATIVE); Urine Ketone 15 mg/dL (NEGATIVE); Urine Nitrite Negative (NEGATIVE); Urine Protein Negative (NEGATIVE); Urine Urobilinogen Normal (NORMAL)
[2019-11-09 14:11] LABS: Urine Appearance Clear (CLEAR); Urine Color Yellow
[2019-11-09 14:12] LABS: Urine Bacteria TRACE; Urine RBC TRACE /hpf (0-5); Urine WBC TRACE /hpf (0-5)
--- NOTE | 2019-11-09 14:20 | ANES ---
Post Anesthesia Discharge - Transfer of Care Transfer of Care handoff given to nurse: Yes - Discharge from PACU Discharge from PACU when meets criteria: Yes - Discharge to ASU Discharge to ASU-no complications/pt stable: Yes
--- NOTE | 2019-11-09 14:21 | ANES ---
Post Anesthesia Assessment - Vital Signs Vitals: Last Vital Signs Temp 37.3 C 11/09/19 08:36 Pulse 83 11/09/19 09:18 Resp 13 11/09/19 09:18 BP 126/85 11/09/19 09:18 Pulse Ox 95 11/09/19 09:18 Airway Patency: Normal - Mental Status Level Of Consciousness: Awake - Pain Level Pain Score: 0 - N/V Assessment Nausea/Vomiting Presence: None Dehydration:: No
--- NOTE | 2019-11-09 14:32 | OR ---
Operative Report - Dictated Report Narrative: Operative Report Date of operation: 11/09/2019 Preoperative diagnosis: Abnormal CT scan of the esophagus Postoperative diagnosis: Small hiatal hernia, otherwise normal EGD (pathology and CLOtest pending) Operation: EGD with biopsies Surgeon: Dr Mcintosh Anesthesia: YOGI Milner CRNA Indications for procedure: The patient is a 49-year-old male who presented to the emergency room with epigastric and lower chest discomfort. CT scan of the abdomen and pelvis and chest was performed due to elevated d-dimer. The distal esophagus was described as thickened and EGD was recommended to rule out malignancy. Findings: Essentially normal EGD with a very small hiatal hernia (pathology and CLOtest pending) Narrative of procedure: The patient was identified preoperatively, and prior to the administration of anesthetic a multidisciplinary timeout was observed With the patient in the recumbent position, a bite-block was placed, intravenous sedation administered, and the patient's eyes covered with a towel. The flexible fiberoptic gastroscope was advanced into the posterior pharynx which appeared normal. The supraglottic larynx appeared normal. The cords appeared normal, moved well, and opposed in the midline. The scope was advanced under direct vision into the proximal esophagus which appeared normal. The esophagus appeared freely distensible with normal mucosa. The esophageal mucosa appeared normal down to the gastroesophageal junction which was sharp and noninflamed. There was a very small sliding hiatal hernia. The GE junction appeared normally distensible. The scope was advanced into the stomach which was insufflated with air. The gastric mucosa appeared relatively normal including a retroflexed view of the gastric fundus.. The pylorus appeared patent. The scope was advanced into the duodenal bulb which appeared normal. The scope was advanced further to the horizontal portion of the duodenum which appeared normal, specifically the villous architecture appeared well preserved and clear bile was present. The scope was slowly withdrawn through the duodenal bulb with confirmation that no active ulcer was present. The scope was withdrawn into the stomach and technology sales representative biopsies of gastric mucosa obtained for CLOtest and pathology. The biopsy sites were seen to be hemostatic. The insufflated air was removed from the stomach, the scope withdrawn from the patient, and the procedure terminated. The patient tolerated the anesthetic and procedure well without complication and was transferred back to his regular room awake and in stable condition. Reviewed and electronically signed
[2019-11-09] MEDS ORDERED: ALBUTEROL SULFATE 2.5 MG/0.5 ML VIAL.NEB IH PRN (18:19)
[2019-11-09] MEDS: SUCRALFATE 1 G/10 ML UDC PO SCH (20:51)
[2019-11-09] MEDS: DICYCLOMINE HCL 20 MG TABLET PO SCH (20:51)
[2019-11-10] MEDS: KETOROLAC TROMETHAMINE 30 MG/ML VIAL IV PRN ×4 (00:20→19:02)
[2019-11-10 06:28] LABS: Hematocrit 41.1 % (42.0-52.0); Hemoglobin 13.1 gm/dL (13.5-18.0); Mean Cell Volume 89.9 fl (78-100); Mean Corpuscular Hemoglobin 28.7 pg (27-31); Mean Corpuscular Hgb Conc 31.9 g/dl (32-36); Mean Platelet Volume 9.2 fl (8-11.3); Neutrophil # 8.2 K/mm3 (1.3-6.0); Neutrophil % 75.4 % (42-75.0); Platelet Count 324 K/mm3 (150-450); Red Blood Count 4.57 M/mm3 (4.7-6.0); Red Cell Distribution Width 12.6 % (11.5-14.0); White Blood Count 10.8 K/mm3 (4.0-10.5)
[2019-11-10] MEDS: SUCRALFATE 1 G/10 ML UDC PO SCH ×4 (06:40→20:12)
[2019-11-10 06:44] LABS: Albumin * 2.6 gm/dl (3.4-5.0); Anion Gap 12.7 mmol/L (6.8-13.8); Bilirubin, Total 1.1 mg/dL (0.0-1.1); Ca. Corrected For Albumin 10.1 mg/dL (8.4-10.2); Calcium * 9.3 mg/dL (7.9-10.9); Carbon Dioxide 28.1 mmol/L (24-32.6); Potassium 3.8 mmol/L (3.4-4.6); Total Protein 7.6 gm/dL (6.2-8.2)
[2019-11-10] MEDS ORDERED: NITROGLYCERIN 0.4 MG/TAB BTL SL PRN (08:00)
[2019-11-10] MEDS ORDERED: MAG HYDROX/ALUMINUM HYD/SIMETH 30 ML UDC PO ONE (08:19)
[2019-11-10] MEDS ORDERED: BELLADONNA ALKALOIDS/PHENOBARB ELIXIR PO ONE (08:19)
[2019-11-10] MEDS ORDERED: LIDOCAINE HCL 20 ML UDC PO ONE (08:19)
[2019-11-10] MEDS: DICYCLOMINE HCL 20 MG TABLET PO SCH ×4 (08:26→20:12)
[2019-11-10] MEDS: PANTOPRAZOLE SODIUM 40 MG in NORMAL SALINE 100 ML IV SCH ×2 (08:26→20:13)
[2019-11-10] MEDS: METOPROLOL TARTRATE 50 MG TABLET PO SCH (08:29)
[2019-11-10] MEDS: LEVOFLOXACIN 500 MG TABLET PO SCH (08:29)
[2019-11-10] MEDS ORDERED: METHYLPREDNISOLONE SOD SUCC/PF 40 MG/ML VIAL IV ONE (11:28)
--- NOTE | 2019-11-10 22:49 | PN ---
Subjective - Date and Time Seen Date: 11/10/19 Time: 07:45 Subjective Narrative: James has had a very uncomfortable night. Continues to have a lot of epigastric pain. I was there when he had his breakfast and he had one bite of Jell-O in it set off is pain. This strongly suggests that this is G.I. in origin. I gave him a G.I. cocktail and he got a little relief from that. I reviewed his CAT scans with the radiologist this morning and indeed there is a mass affect posterior and to the left of the esophagus distally. there are also carinal lymph nodes that are enlarged. A chest x-ray this morning shows atelectasis persisting and small bilateral plural effusions. I called the [facility] Department of gastroenterology and spoke with a physician there. He referred the case to one of their advanced 10 endoscopist. They had asked forward his CT scans to them and they were to call me back but I have not heard from them since then. The radiologist here suggested the next step might be a pet CT scan. [facility] thought that perhaps ultrasound guided endoscopy could be used to do a transesophageal biopsy. Fortunately, he gets relief from Toradol. A said rate this morning was elevated at 101. I ordered an RA screen and an RACHAEL and I also ordered a dose of Solu-Medrol. I will continue him on his home blood pressure medicines. Objective - Review of Systems Generalized/Overall Review: Reports: Malaise EENTM: Reports: No Symptoms Reported Respiratory: Reports: No Symptoms Reported Cardiac: Reports: No Symptoms Reported Abdominal: Reports: Abdominal Pain Genitourinary Symptoms: Reports: No Symptoms Reported Musculoskeletal Complaints: Reports: No Symptoms Reported Neurological: Reports: No Symptoms Reported Skin: Reports: No Symptoms Reported Endocrine: Reports: No Symptoms Reported - Vitals Vitals: Last Vital Signs Temp 36.7 C 11/10/19 21:39 Pulse 72 11/10/19 21:39 Resp 15 11/10/19 21:39 BP 113/70 11/10/19 21:39 Pulse Ox 93 11/10/19 21:39 - Abnormal Lab Findings Abnormal Lab Findings: Abnormal Lab Results 11/10/19 11/10/19 11/10/19 Range/Units 06:10 06:10 06:10 WBC 10.8 H (4.0-10.5) K/mm3 RBC 4.57 L (4.7-6.0) M/mm3 Hgb 13.1 L (13.5-18.0) gm/dL Hct 41.1 L (42.0-52.0) % MCHC 31.9 L (32-36) g/dl Immature Gran % (Auto) 0.90 H (0.001-0.429) % Immature Gran # (Auto) 0.10 H (0.000-0.0310) K/mm3 Neutrophils % 75.4 H (42-75.0) % Lymphocytes % 12.5 L (20-51) % Monocytes % 9.4 H (0.0-9) % Neutrophils # 8.2 H (1.3-6.0) K/mm3 Lymphocytes # 1.35 L (1.5-3.5) k/mm3 ESR 101 H (0-10) mm/hr Albumin 2.6 L (3.4-5.0) gm/dl - EKG/Xray Findings XRAY: CT abdomen and CT chest Interpretation: Reviewed by me - Exam Constitutional: Present: Alert, Oriented x3, Cooperative, Well developed, Well nourished, Moderate distress ENT Exam: Present: normal ENT inspection, hearing grossly normal, pharynx normal Neck: Present: non-tender, full range of motion, supple, normal inspection Respiratory: Present: chest non-tender, lungs clear, normal breath sounds, no respiratory distress, no accessory muscle use Cardiovascular/Chest: Present: normal peripheral pulses, regular rate, rhythm, no chest tenderness, no edema, no gallop, no JVD, no murmur, no rub Abdomen: Present: Normal bowel sounds, soft, no hepatospenomegaly, no masses, tender, negative Olmstead sign Extremity: Present: normal range of motion, non-tender, normal inspection, no pedal edema Skin Exam: Present: normal color, warm/dry, no cyanosis Lymphatic: Present: no adenopathy Neurologic: Present: child development professor II-XII nml as tested, normal cerebellar test, no motor/sensory deficits, alert, normal mood/affect, oriented x 3 Appearance: Present: appropriate appearance Eye contact: Present: cooperative, good eye contact, normal speech Thoughts: Present: normal thought pattern, no apparent hallucination Assessment/Plan - Problems/Diagnosis (1) Abnormal CT scan, esophagus Problem: Acute Narrative: I have added pantoprazole, sucralfate, G.I. cocktail, and given one dose of Solu-Medrol. Hopefully he will begin to feel better tomorrow. I am awaiting a call back from the [facility] and hopefully will hear from them in the morning. Morning labs ordered. (2) Epigastric pain Problem: Acute (3) Elevated sed rate Problem: Acute
[2019-11-11] MEDS: KETOROLAC TROMETHAMINE 30 MG/ML VIAL IV PRN ×3 (01:03→15:24)
[2019-11-11] MEDS: SUCRALFATE 1 G/10 ML UDC PO SCH ×4 (06:31→21:36)
--- NOTE | 2019-11-11 08:09 | PN ---
Subjective - Date and Time Seen Date: 11/11/19 Time: 07:45 Subjective Narrative: James had a fairly good night. He was given his pain medicines at 1 AM and he slept until about 630 this morning. He had not had much abdominal discomfort until he tried to eat breakfast but with the first bite he once again set off his severe abdominal pain. I am still waiting to hear back from the [facility]. We pushed his imaging studies to them yesterday for them to review and they are to call me back but I have not heard from them yet. His blood pressure is better now that he is back on his medications. I believe the steroids must have helped reduce some inflammation and is probably why he had a better night. I will repeat that today. Objective - Review of Systems Generalized/Overall Review: Reports: Malaise EENTM: Reports: No Symptoms Reported Respiratory: Reports: No Symptoms Reported Cardiac: Reports: No Symptoms Reported Abdominal: Reports: Abdominal Pain Genitourinary Symptoms: Reports: No Symptoms Reported Musculoskeletal Complaints: Reports: No Symptoms Reported Neurological: Reports: No Symptoms Reported Skin: Reports: No Symptoms Reported Endocrine: Reports: No Symptoms Reported - Vitals Vitals: Last Vital Signs Temp 36.1 C 11/11/19 06:20 Pulse 96 11/11/19 06:20 Resp 18 11/11/19 06:20 BP 117/68 11/11/19 06:20 Pulse Ox 96 11/11/19 06:20 - EKG/Xray Findings XRAY: CT scans - Exam Constitutional: Present: Alert, Oriented x3, Cooperative, Well developed, Well nourished, Moderate distress, Middle aged ENT Exam: Present: normal ENT inspection, hearing grossly normal, pharynx normal, TMs normal Neck: Present: non-tender, full range of motion, supple, normal inspection Breasts: Present: Exam deferred Respiratory: Present: chest non-tender, lungs clear, normal breath sounds, no respiratory distress Cardiovascular/Chest: Present: normal peripheral pulses, regular rate, rhythm, no chest tenderness, no edema, no gallop, no JVD, no murmur, no rub Abdomen: Present: Normal bowel sounds, soft, tender, guarding /Rectal: Present: Exam deferred Extremity: Present: normal range of motion, non-tender, normal inspection, no pedal edema, no calf tenderness, normal capillary refill Skin Exam: Present: normal color, warm/dry, no cyanosis Lymphatic: Present: no adenopathy Neurologic: Present: shank pinner II-XII nml as tested, normal cerebellar test, no motor/sensory deficits, alert, normal mood/affect Appearance: Present: appropriate appearance, appropriate insight, neat, no memory impairment Eye contact: Present: cooperative, good eye contact, normal speech Thoughts: Present: normal thought pattern, no apparent hallucination Assessment/Plan Plan Narrative: 1. Solu-Medrol 40 mg IV piggyback once today 2. Awaiting callback from [facility]. 3. Continue to monitor blood pressure. 4. Give IV Toradol about 30 minutes before lunch. - Problems/Diagnosis (1) Abnormal CT scan, esophagus Problem: Acute (2) Epigastric pain Problem: Acute (3) Elevated sed rate Problem: Acute (4) Essential hypertension Problem: Acute
[2019-11-11] MEDS: LEVOFLOXACIN 500 MG TABLET PO SCH (08:14)
[2019-11-11] MEDS: PANTOPRAZOLE SODIUM 40 MG in NORMAL SALINE 100 ML IV SCH ×2 (08:14→21:37)
[2019-11-11] MEDS: METOPROLOL TARTRATE 50 MG TABLET PO SCH (08:14)
[2019-11-11] MEDS: DICYCLOMINE HCL 20 MG TABLET PO SCH ×4 (08:14→21:36)
--- NOTE | 2019-11-11 17:09 | DS ---
Transfer Discharge Summary - Diagnosis(s)/Problems (1) Abnormal CT scan, esophagus Problem: Acute (2) Epigastric pain Problem: Acute (3) Elevated sed rate Problem: Acute (4) Essential hypertension Problem: Acute - Course Description of Stay: James Garcia is a 49-year-old male admitted through the emergency room because of severe midepigastric pain that was doubling him over. Onset of symptoms was about 8 days ago. He had been diagnosed with pneumonia and is still taking a course of levofloxacin. In the emergency room a CT scan of the chest with angiography and a CT abdomen and pelvis was done. There was an abnormality of the distal esophagus and lymphadenopathy noted. Chest x-ray showed atelectasis and bilateral pleural effusions that were small. No focal infiltrates were seen. Laboratory work showed was largely normal. The sed rate however is 101. He was initially started on morphine for his abdominal pain which had no impact. He was then given Toradol which gave him some relief. However every time he eats the first bite of food he gets severe abdominal pain once again. I have given him sucralfate, dicyclomine, a GI cocktail. He is on a full liquid diet at this time but cannot eat hardly anything. I have spoken with and Dr. Lott. - Medications Medications: Active Medications Dicyclomine HCl (Bentyl) 20 mg PO QID [facility] Stop: 12/09/19 21:01 Last Admin: 11/11/19 13:10 Dose: 20 mg Documented by: Pantoprazole Sodium 40 mg/ (Sodium Chloride) 100 mls @ 400 mls/hr IV Q12H [facility] Stop: 12/09/19 09:01 Last Infusion: 11/11/19 08:29 Dose: Infused Documented by: Levofloxacin (Levaquin) 500 mg PO DAILY [facility]; Protocol Stop: 11/12/19 10:00 Last Admin: 11/11/19 08:14 Dose: 500 mg Documented by: Metoprolol Tartrate (Lopressor) 50 mg PO DAILY [facility] Stop: 12/10/19 09:01 Last Admin: 11/11/19 08:14 Dose: 50 mg Documented by: Morphine Sulfate (Morphine Sulfate) 5 mg IV Q30M PRN PRN Reason: Pain Stop: 12/09/19 08:50 Last Admin: 11/09/19 23:14 Dose: 5 mg Documented by: Sucralfate (Carafate Suspension) 1 g PO ACHS [facility] Stop: 12/09/19 21:01 Last Admin: 11/11/19 11:12 Dose: 1 g Documented by: Discontinued Medications Al Hydrox/Mg Hydrox/Simethicone (Maalox Plus Suspension) 30 ml PO ONCE ONE Stop: 11/10/19 08:20 Last Admin: 11/10/19 08:29 Dose: 30 ml Documented by: Albuterol Sulfate (Albuterol Sulfate 2.5 Mg/0.5ml) 2.5 mg IH Q6HRT [facility] Stop: 12/09/19 09:01 Last Admin: 11/09/19 18:18 Dose: Not Given Documented by: Belladonna/Phenobarbital ( Elixir) 20 ml PO ONCE ONE Stop: 11/10/19 08:20 Last Admin: 11/10/19 08:28 Dose: 20 ml Documented by: Diatrizoate Meglum/Diatrizoate Sod (Gastrografin Solution) 60 ml PO ONCE ONE Stop: 11/09/19 04:57 Last Admin: 11/09/19 05:03 Dose: 60 ml Documented by: Lactated Ringer's (Lactated Ringers) 1,000 mls @ 125 mls/hr IV .Q8H ONE Stop: 11/09/19 21:56 Last Infusion: 11/10/19 10:01 Dose: Infused Documented by: Ketorolac Tromethamine (Toradol) 30 mg IV Q6H PRN PRN Reason: Pain Stop: 11/14/19 08:38 Last Admin: 11/11/19 15:24 Dose: 30 mg Documented by: Lidocaine HCl (Lidocaine Hcl Viscous 2%) 15 ml PO ONCE ONE Stop: 11/10/19 08:20 Last Admin: 11/10/19 08:28 Dose: 15 ml Documented by: Methylprednisolone Sodium Succinate (Solu-Medrol) 40 mg IV ONCE ONE Stop: 11/10/19 11:29 Last Admin: 11/10/19 13:00 Dose: 40 mg Documented by: Morphine Sulfate (Morphine Sulfate) 2 mg IV ONCE ONE Stop: 11/09/19 04:46 Last Admin: 11/09/19 04:55 Dose: 2 mg Documented by: Morphine Sulfate (Morphine Sulfate) 2 mg IV ONCE ONE Stop: 11/09/19 06:03 Last Admin: 11/09/19 06:06 Dose: 2 mg Documented by: Morphine Sulfate (Morphine Sulfate) 2 mg IV ONCE ONE Stop: 11/09/19 08:07 Last Admin: 11/09/19 08:10 Dose: 2 mg Documented by: Morphine Sulfate (Morphine Sulfate) 4 mg IV ONCE ONE Stop: 11/09/19 08:31 Last Admin: 11/09/19 08:33 Dose: 4 mg Documented by: Ondansetron HCl (Zofran) 4 mg IV ONCE ONE Stop: 11/09/19 05:00 Last Admin: 11/09/19 05:04 Dose: 4 mg Documented by: - Disposition Disposition: Home self-care Condition: Stable
[2019-11-11] MEDS: IBUPROFEN 800 MG TABLET PO PRN (21:34)
[2019-11-11] MEDS: MORPHINE SULFATE 10 MG/ML SYRG IV PRN (23:01)
[2019-11-12] MEDS: MORPHINE SULFATE 10 MG/ML SYRG IV PRN ×3 (02:45→06:23)
[2019-11-12] MEDS: IBUPROFEN 800 MG TABLET PO PRN ×3 (05:48→19:53)
[2019-11-12] MEDS: SUCRALFATE 1 G/10 ML UDC PO SCH ×4 (06:21→20:50)
[2019-11-12] MEDS: DICYCLOMINE HCL 20 MG TABLET PO SCH ×4 (08:31→20:50)
[2019-11-12] MEDS: LEVOFLOXACIN 500 MG TABLET PO SCH (08:31)
[2019-11-12] MEDS: PANTOPRAZOLE SODIUM 40 MG in NORMAL SALINE 100 ML IV SCH ×2 (08:31→20:51)
[2019-11-12] MEDS: METOPROLOL TARTRATE 50 MG TABLET PO SCH (08:32)
--- NOTE | 2019-11-12 18:28 | PN ---
Subjective - Date and Time Seen Date: 11/12/19 Time: 07:45 Subjective Narrative: James had increased pain in his abdomen through the night and was taking ibuprofen and then requested some morphine. He is finally getting some relief but it is not as quick as the Toradol. I have spoken with the [facility] and the triage physician officer he recommends planning on it being Saturday before they will have a bed. They are full and there is no room at the [facility] at this time. He has been able to eat a few bites and is feeling some better I believe. There have been no new complications. Anticipate they will call tomorrow or Saturday for room availability. Objective - Review of Systems Generalized/Overall Review: Reports: Malaise EENTM: Reports: No Symptoms Reported Respiratory: Reports: No Symptoms Reported, Cough Cardiac: Reports: No Symptoms Reported Abdominal: Reports: Abdominal Pain Genitourinary Symptoms: Reports: No Symptoms Reported Musculoskeletal Complaints: Reports: No Symptoms Reported Neurological: Reports: No Symptoms Reported Skin: Reports: No Symptoms Reported Endocrine: Reports: No Symptoms Reported - Vitals Vitals: Last Vital Signs Temp 35.5 C L 11/12/19 14:49 Pulse 83 11/12/19 14:49 Resp 20 11/12/19 14:49 BP 109/64 11/12/19 14:49 Pulse Ox 92 L 11/12/19 14:49 - Exam Constitutional: Present: Alert, Oriented x3, Cooperative, Well developed, Well nourished, Mild distress ENT Exam: Present: normal ENT inspection, hearing grossly normal, pharynx normal, TMs normal Neck: Present: non-tender, full range of motion, supple Breasts: Present: Exam deferred Respiratory: Present: chest non-tender, lungs clear, normal breath sounds, no respiratory distress, no accessory muscle use Cardiovascular/Chest: Present: normal peripheral pulses, regular rate, rhythm, no chest tenderness, no edema, no gallop, no JVD, no murmur, no rub Abdomen: Present: Normal bowel sounds, soft, nontender, nondistended, no rebound tenderness, no hepatospenomegaly, no masses /Rectal: Present: Exam deferred Extremity: Present: normal range of motion, non-tender, normal inspection, no pedal edema, no calf tenderness Skin Exam: Present: normal color, warm/dry, no cyanosis Lymphatic: Present: no adenopathy Neurologic: Present: academic support specialist II-XII nml as tested, normal cerebellar test Appearance: Present: appropriate appearance, appropriate insight, neat, no memory impairment Eye contact: Present: cooperative Thoughts: Present: normal thought pattern, no apparent hallucination Assessment/Plan Plan Narrative: 1. Continue with pain management. 2. Continue with offering food and trying to progress the diet. 3. [facility] from [facility] - Problems/Diagnosis (1) Abnormal CT scan, esophagus Problem: Acute (2) Epigastric pain Problem: Acute (3) Elevated sed rate Problem: Acute (4) Essential hypertension Problem: Acute
[2019-11-13] MEDS: IBUPROFEN 800 MG TABLET PO PRN ×3 (02:13→14:47)
[2019-11-13] MEDS: SUCRALFATE 1 G/10 ML UDC PO SCH ×2 (07:36→11:48)
[2019-11-13] MEDS: METOPROLOL TARTRATE 50 MG TABLET PO SCH (08:25)
[2019-11-13] MEDS: PANTOPRAZOLE SODIUM 40 MG in NORMAL SALINE 100 ML IV SCH (08:25)
[2019-11-13] MEDS: DICYCLOMINE HCL 20 MG TABLET PO SCH ×2 (08:25→12:15)
--- NOTE | 2019-11-13 08:46 | PN ---
Subjective - Date and Time Seen Date: 11/13/19 Time: 08:43 Subjective Narrative: James is had an uneventful night again. Yesterday was his best day since he has been admitted having much less pain. He is starting to eat some better. His blood pressure has been in the 132 systolic range. No new lab to report yet. I ordered some for this morning. Objective - Review of Systems Generalized/Overall Review: Reports: No Symptoms Reported EENTM: Reports: No Symptoms Reported Respiratory: Reports: No Symptoms Reported Cardiac: Reports: No Symptoms Reported Abdominal: Reports: Abdominal Pain Genitourinary Symptoms: Reports: No Symptoms Reported Musculoskeletal Complaints: Reports: No Symptoms Reported Neurological: Reports: No Symptoms Reported Skin: Reports: No Symptoms Reported Endocrine: Reports: No Symptoms Reported - Vitals Vitals: Last Vital Signs Temp 36.6 C 11/13/19 02:13 Pulse 67 11/13/19 08:25 Resp 16 11/13/19 02:13 BP 134/83 11/13/19 08:25 Pulse Ox 97 11/13/19 02:13 - Exam Constitutional: Present: Alert, Oriented x3, Cooperative, Well developed, Well nourished, Mild distress ENT Exam: Present: normal ENT inspection, hearing grossly normal, pharynx normal Neck: Present: non-tender, full range of motion, supple, normal inspection, trachea midline Breasts: Present: Exam deferred Respiratory: Present: chest non-tender, lungs clear, normal breath sounds, no respiratory distress, no accessory muscle use Cardiovascular/Chest: Present: normal peripheral pulses, regular rate, rhythm, no chest tenderness, no edema, no gallop Abdomen: Present: Normal bowel sounds, soft, tender - In the midepigastric area /Rectal: Present: Exam deferred Extremity: Present: normal range of motion, non-tender, normal inspection, no pedal edema, no calf tenderness, normal capillary refill Skin Exam: Present: normal color, warm/dry, no cyanosis Neurologic: Present: senior quality assurance specialist II-XII nml as tested, normal cerebellar test, no motor/sensory deficits Appearance: Present: appropriate appearance, appropriate insight, neat, no memory impairment Eye contact: Present: cooperative, good eye contact, normal speech Thoughts: Present: normal thought pattern, no apparent hallucination Assessment/Plan - Problems/Diagnosis (1) Abnormal CT scan, esophagus Problem: Acute (2) Epigastric pain Problem: Acute (3) Elevated sed rate Problem: Acute (4) Essential hypertension Problem: Acute
[2019-11-13 09:11] LABS: Hematocrit 41.3 % (42.0-52.0); Hemoglobin 13.2 gm/dL (13.5-18.0); Mean Cell Volume 89.4 fl (78-100); Mean Corpuscular Hemoglobin 28.6 pg (27-31); Mean Platelet Volume 9.2 fl (8-11.3); Neutrophil # 6.8 K/mm3 (1.3-6.0); Neutrophil % 77.8 % (42-75.0); Platelet Count 347 K/mm3 (150-450); Red Blood Count 4.62 M/mm3 (4.7-6.0); Red Cell Distribution Width 12.3 % (11.5-14.0); White Blood Count 8.7 K/mm3 (4.0-10.5)
[2019-11-13 09:17] LABS: Albumin * 2.5 gm/dl (3.4-5.0); Anion Gap 8.9 mmol/L (6.8-13.8); Bilirubin, Total 0.5 mg/dL (0.0-1.1); Ca. Corrected For Albumin 9.7 mg/dL (8.4-10.2); Calcium * 8.8 mg/dL (7.9-10.9); Carbon Dioxide 28.8 mmol/L (24-32.6); Potassium 3.7 mmol/L (3.4-4.6); Total Protein 7.4 gm/dL (6.2-8.2)
[2019-11-13] MEDS: MORPHINE SULFATE 10 MG/ML SYRG IV PRN (12:15)
[2019-11-13] MEDS ORDERED: METHYLPREDNISOLONE SOD SUCC/PF 40 MG/ML VIAL IV ONE (14:15)
--- NOTE | 2019-11-13 14:37 | DS ---
(1) Abnormal CT scan, esophagus Problem: Acute (2) Epigastric pain Problem: Acute (3) Elevated sed rate Problem: Acute (4) Essential hypertension Problem: Acute Date of Discharge:: 11/13/19 Hospital Course: James Garcia is a 49-year-old male admitted through the emergency room because of severe midepigastric pain that was doubling him over. Onset of symptoms was about 8 days ago. He had been diagnosed with pneumonia and is still taking a course of levofloxacin. In the emergency room a CT scan of the chest with angiography and a CT abdomen and pelvis was done. There was an abnormality of the distal esophagus and lymphadenopathy noted. Chest x-ray showed atelectasis and bilateral pleural effusions that were small. No focal infiltrates were seen. Laboratory work showed was largely normal. The sed rate however is 101. He was initially started on morphine for his abdominal pain which had no impact. He was then given Toradol which gave him some relief. However every time he eats the first bite of food he gets severe abdominal pain once again. I have given him sucralfate, dicyclomine, a GI cocktail. He is on a full liquid diet at this time but cannot eat hardly anything. I have spoken with and Dr. Lott. In the past 72 hours he has shown gradual improvement. Yesterday was his best day since being admitted and he has been able to take full liquids with only minor discomfort. He has had 2 doses of Solu-Medrol 40 mg each given IV and the last dose was 3 days ago. His sed rate has dropped from 101 down to 88. Blood sugar has spiked to 156. Blood pressures have been much better controlled. He is ambulatory and otherwise fully functional. At lunch today I challenged him with a regular diet and he developed severe abdominal pain once again. He was given some IV morphine and is much more comfortable now and then has finished some applesauce without difficulty afterwards. I spoke with the insurance company and did a peer to peer visit today. She was very pleasant and helpful and agreed to approve the admission to our hospital. He was initially admitted to observation and then converted to acute stay. However because of his interval improvement they would not approve a transfer or admission to the [facility] since he was basically just going there for procedure now. I have spoken with James and his about this and I have assured them I will try to get an appointment on an outpatient basis as soon as possible with the advanced endoscopist group there. I will give him 1 more dose of Solu-Medrol this afternoon and then he will be discharged home afterwards. Procedures Performed: see notes below List Procedures: EGD Results and Findings: Pending Mircobiology Results 11/09/19 04:40 Blood Blood Culture - Preliminary NO GROWTH AFTER 48 HOURS 11/09/19 04:20 Blood Blood Culture - Preliminary NO GROWTH AFTER 48 HOURS Lab Pending Results 11/09/19 04:20: WBC 12.4 H, RBC 4.76, Hgb 13.7, Hct 42.6, MCV 89.5, MCH 28.8, MCHC 32.2, RDW 12.7, Plt Count 329, MPV 9.4, Immature Gran % (Auto) 0.80 H, Immature Gran # (Auto) 0.10 H, Neutrophils % 77.1 H, Lymphocytes % 12.3 L, Monocytes % 8.0, Eosinophils % 1.6, Basophils % 0.2, Nucleated RBC % 0.0, Neutrophils # 9.6 H, Lymphocytes # 1.52, Monocytes # 1.0, Eosinophils # 0.2, Absolute Basophils 0.0 11/09/19 04:20: Sodium 139, Plasma Sodium 139, Potassium 3.7, Chloride 103, Carbon Dioxide 26.1, Anion Gap 13.6, BUN 12, Creatinine 0.94, Est GFR (Non-Af Amer) 91, BUN/Creatinine Ratio 12.8, Random Glucose 119 H, Calcium 9.5, Calcium Adj for Albumin 10.0, Total Bilirubin 0.7, AST 27, ALT 47, Alkaline Phosphatase 137, Total Protein 7.8, Albumin 3.0 L, Amylase 28, Lipase 45 L 11/09/19 04:20: Lactic Acid, Venous 1.2 11/09/19 04:20: D-Dimer 2.24 H 11/09/19 09:02: SARS-CoV-2 (PCR) Not detected 11/09/19 13:47: Urine Color Yellow, Urine Appearance Clear, Urine pH 6.0, Ur Specific Mad[place] 1.010, Urine Protein Negative, Urine Glucose (UA) Negative, Urine Ketones 15, Urine Blood Negative, Urine Nitrate Negative, Urine Bilirubin Negative, Urine Urobilinogen Normal, Ur Leukocyte Esterase Negative, Urine RBC Trace, Urine WBC Trace, Ur Epithelial Cells Trace, Urine Bacteria Trace, Urine Culture Comments No culture indicated 11/09/19 14:26: Pathology Specimen Sent to path 11/10/19 06:10: WBC 10.8 H, RBC 4.57 L, Hgb 13.1 L, Hct 41.1 L, MCV 89.9, MCH 28.7, MCHC 31.9 L, RDW 12.6, Plt Count 324, MPV 9.2, Immature Gran % (Auto) 0.90 H, Immature Gran # (Auto) 0.10 H, Neutrophils % 75.4 H, Lymphocytes % 12.5 L, Monocytes % 9.4 H, Eosinophils % 1.5, Basophils % 0.3, Nucleated RBC % 0.0, Neutrophils # 8.2 H, Lymphocytes # 1.35 L, Monocytes # 1.0, Eosinophils # 0.2, Absolute Basophils 0.0 11/10/19 06:10: ESR 101 H 11/10/19 06:10: Sodium 138, Plasma Sodium 138, Potassium 3.8, Chloride 101, Carbon Dioxide 28.1, Anion Gap 12.7, BUN 16, Creatinine 1.07, Est GFR (Non-Af Amer) 78, BUN/Creatinine Ratio 15.0, Random Glucose 105, Calcium 9.3, Calcium Adj for Albumin 10.1, Total Bilirubin 1.1, AST 22, ALT 39, Alkaline Phosphatase 129, Total Protein 7.6, Albumin 2.6 L 11/10/19 06:10: RACHAEL Screen Negative 11/13/19 09:03: WBC 8.7, RBC 4.62 L, Hgb 13.2 L, Hct 41.3 L, MCV 89.4, MCH 28.6, MCHC 32.0, RDW 12.3, Plt Count 347, MPV 9.2, Immature Gran % (Auto) 1.60 H, Immature Gran # (Auto) 0.14 H, Neutrophils % 77.8 H, Lymphocytes % 12.5 L, Monocytes % 4.9, Eosinophils % 2.6, Basophils % 0.6, Nucleated RBC % 0.0, Neutrophils # 6.8 H, Lymphocytes # 1.09 L, Monocytes # 0.4, Eosinophils # 0.2, Absolute Basophils 0.1 11/13/19 09:03: Sodium 136, Plasma Sodium 137, Potassium 3.7, Chloride 102, Carbon Dioxide 28.8, Anion Gap 8.9, BUN 10, Creatinine 1.00, Est GFR (Non-Af Amer) 84, BUN/Creatinine Ratio 10.0, Random Glucose 152 H, Calcium 8.8, Calcium Adj for Albumin 9.7, Total Bilirubin 0.5, AST 26, ALT 43, Alkaline Phosphatase 116, Total Protein 7.4, Albumin 2.5 L 11/13/19 09:03: ESR 88 H Discharge Location: Home Disposition: Home self-care Condition: Stable Discharge Activity: Activity as tolerated Discharge Diet: Full Liquids Additional Patient Instructions (free text): Continue with full liquid diet. He is to stay off work next week. I will let them know as soon as I have an appointment available for them. See me in the office in 1 week Complete Home Medications List: Complete Home Medication List: nitroglycerin 0.4 mg sublingual tablet 0.4 mg SL Q5-15M PRN #25 tab 06/27/18 metoprolol tartrate 50 mg tablet 50 mg PO DAILY #180 tab 06/16/19 Albuterol Sulfate [Proair HFA] 2 puff INHALATION Q6H #1 inhaler 11/03/19 Famotidine [Pepcid] 20 mg PO DAILY 11/09/19 Dicyclomine HCl [Bentyl] 20 mg PO QID #60 tab 11/13/19 Ibuprofen [Motrin] 800 mg PO Q6H PRN #60 tab 11/13/19 Forms: Patient Portal Registration
[2019-11-13 15:09] VITALS: BP 112/73
== END 2019-11-13 15:20 | disposition home or self-care (01) | DRG 392 ==
LOC: MS 03:51 → ER 03:51 → MS 09:19
PROVIDERS: ADMIT Family Medicine; ATTEND Family Medicine
DX: R70.0 Elevated erythrocyte sedimentation rate; Z11.59 Encounter for screening for other viral diseases; K44.9 Diaphragmatic hernia without obstruction or gangrene; K29.50 Unspecified chronic gastritis without bleeding; R93.3 Abnormal findings on diagnostic imaging of other parts of digestive tract; I10 Essential (primary) hypertension; R10.13 Epigastric pain
CPT/HCPCS: 36415; 71020; 71046; 71275; 74177; 80053; 81001; 82150; 83605; 83690; 85025; 85379; 85652; 86038; 87040; 87081; 88305; 88888; 93005; 96365; 96366; 96375; 96376; 99285; C9803; G0378; J2405; Q9963; Q9967